=== PATIENT | male | born 1960 | race Caucasian/White ===

== ENCOUNTER 2017-06-15 21:05 | Emergency (ER) | payer MEDICAID ==
[~2017-06-15] VITALS: Ht 182.9 cm; Wt 114.6 kg
[~2017-06-15 21:05] MED LIST: AMLO10TA PO; ASPI-611 PO; ATOR10TA PO; CARV3.122 PO; CYCL-1 PO; FAMO20TA20; FLO0.4C PO; FURO40TA4 PO; GABA-532 PO; HYDR2TAB28 PO; IPRA4AER IH; LACT10SO PO; LISI-642 PO; METO-292 PO; OMEP20CA10 PO; OXYC-150 PO; POTA20TA19 PO; VARE1TAB22 PO
[2017-06-15] MEDS ORDERED: ibuprofen tablet 400 MG TABLET PO ONE (23:20)
[2017-06-15] MEDS ORDERED: HYDROcodone/acetaminophen 10/325mg tab PO ONE (23:20)
[2017-06-15] MEDS ORDERED: HYDR-565 PO (23:40)
[2017-06-15 23:46] VITALS: BP 135/85
== END 2017-06-15 23:48 | disposition home or self-care (01) ==
LOC: ER 21:05
DX: S40.021A Contusion of right upper arm, initial encounter (principal); R20.0 Anesthesia of skin; I25.10 Atherosclerotic heart disease of native coronary artery without angina pectoris; I10 Essential (primary) hypertension; J44.9 Chronic obstructive pulmonary disease, unspecified; E11.9 Type 2 diabetes mellitus without complications; F17.200 Nicotine dependence, unspecified, uncomplicated; Z98.890 Other specified postprocedural states; Z79.899 Other long term (current) drug therapy; Z79.82 Long term (current) use of aspirin; Z88.5 Allergy status to narcotic agent; Z88.1 Allergy status to other antibiotic agents; W01.0XXA Fall on same level from slipping, tripping and stumbling without subsequent striking against object, initial encounter; Y93.89 Activity, other specified; Y92.89 Other specified places as the place of occurrence of the external cause; Y99.9 Unspecified external cause status
CPT/HCPCS: 29105; 73080; 99284

== ENCOUNTER 2017-06-17 06:40 | Emergency (ER) | payer MEDICAID ==
[~2017-06-17] VITALS: Ht 182.9 cm; Wt 113.0 kg
[~2017-06-17 06:40] MED LIST changes: +HYDR-565 PO
[2017-06-17] MEDS ORDERED: HYDR-565 PO (07:17)
[2017-06-17 08:16] VITALS: BP 150/79
== END 2017-06-17 08:17 | disposition home or self-care (01) ==
LOC: ER 06:40
DX: M79.601 Pain in right arm (principal); I25.10 Atherosclerotic heart disease of native coronary artery without angina pectoris; I10 Essential (primary) hypertension; J44.9 Chronic obstructive pulmonary disease, unspecified; E11.9 Type 2 diabetes mellitus without complications; Z98.890 Other specified postprocedural states; Z88.5 Allergy status to narcotic agent; Z88.1 Allergy status to other antibiotic agents; Z79.82 Long term (current) use of aspirin; Z79.899 Other long term (current) drug therapy; W01.198D Fall on same level from slipping, tripping and stumbling with subsequent striking against other object, subsequent encounter
CPT/HCPCS: 99283

== ENCOUNTER 2017-06-21 02:42 | Emergency (ER) | payer MEDICAID ==
[~2017-06-21] VITALS: Ht 182.9 cm; Wt 115.1 kg
[2017-06-21 03:42] LABS: BASOPHILS % (AUTO) 0.5 % (0-1); EOSINOPHILS # (AUTO) 0.2 X10'3 (0-0.9); EOSINOPHILS % (AUTO) 3.2 % (0-6); HEMATOCRIT 36.1 % (42.0-52.0); HEMOGLOBIN 12.2 g/dl (14.0-17.9); LYMPHOCYTES # (AUTO) 1.5 X10'3 (1.1-4.8); LYMPHOCYTES % (AUTO) 25.6 % (21-51); MEAN CORPUSCULAR HGB CONC 33.9 % (33.0-36.5); MEAN CORPUSCULAR VOLUME 85.7 FL (78-98); MEAN PLATELET VOLUME 7.9 FL (7.4-10.4); MONOCYTES # (AUTO) 0.4 X10'3 (0-0.9); MONOCYTES % (AUTO) 7.4 % (2-12); NEUTROPHILS # (AUTO) 3.6 X10'3 (1.8-7.7); NEUTROPHILS % (AUTO) 63.3 % (42-75); PLATELET COUNT 243 X10'3 (140-440); RED BLOOD COUNT 4.21 X10'6 (4.70-6.10); RED CELL DISTRIBUTION WIDTH 13.9 % (11.5-14.5); WHITE BLOOD COUNT 5.8 X10'3 (4.5-11.0)
[2017-06-21 04:11] LABS: ALANINE AMINOTRANSFERASE 60 U/L (12-78); ALBUMIN 3.3 G/DL (3.4-5.0); ALBUMIN/GLOBULIN RATIO 0.9 (1.1-1.5); ALKALINE PHOSPHATASE 89 IU/L (46-116); ANION GAP 11 (8-16); ASPARTATE AMINO TRANSFERASE 46 U/L (10-37); BILIRUBIN,TOTAL 0.5 MG/DL (0.1-1.0); BLOOD UREA NITROGEN 11 MG/DL (7-18); BUN/CREATININE RATIO 13.4 (5.4-32.0); CHLORIDE 107 MMOL/L (99-107); CREATININE 0.82 MG/DL (0.60-1.10); GLUCOSE 121 MG/DL (70-104); MAGNESIUM 1.8 MG/DL (1.5-2.4); POTASSIUM 3.8 MMOL/L (3.5-5.1); SODIUM 144 MMOL/L (135-145); TOTAL CARBON DIOXIDE 25.7 MMOL/L (24-32); eGFR > 90 ML/MIN
[2017-06-21 04:15] LABS: PARTIAL THROMBOPLASTIN TIME 24 SECONDS (22-32); PROTHROMBIN TIME 9.9 SECONDS (9.0-12.0)
[2017-06-21] MEDS ORDERED: normal saline 1000ML IV soln IVB ONE (04:30)
[2017-06-21] MEDS ORDERED: acetylcysteine 200 MG/ml 4ml vial PO ONE (04:30)
[2017-06-21] MEDS ORDERED: iohexol 350MG/ML 100ml bottle IV ONE (04:34)
[2017-06-21] MEDS ORDERED: acetylcysteine 200 MG/ml 4ml vial ONE (05:33)
[2017-06-21] MEDS: MESSAGE TO NURSING PO NR ×2 (06:52→08:33)
[2017-06-21] MEDS ORDERED: morphine 4 MG/ML inj SYRINge IV ONE ×2 (08:10→08:55)
[2017-06-21 08:34] VITALS: BP 156/108
== END 2017-06-21 08:20 | disposition home or self-care (01) ==
LOC: ER 02:43
DX: M79.601 Pain in right arm (principal); I25.10 Atherosclerotic heart disease of native coronary artery without angina pectoris; I10 Essential (primary) hypertension; J44.9 Chronic obstructive pulmonary disease, unspecified; E11.9 Type 2 diabetes mellitus without complications; Z88.1 Allergy status to other antibiotic agents; Z88.2 Allergy status to sulfonamides; Z88.8 Allergy status to other drugs, medicaments and biological substances; Z79.82 Long term (current) use of aspirin
CPT/HCPCS: 36415; 73080; 73206; 80053; 83735; 85025; 85610; 85730; 93971; 96361; 96374; 96376; 99285; A4565; A6449; J2270; J7030; Q9967

== ENCOUNTER 2019-02-08 02:17 | Emergency (ER) | payer MEDICAID ==
[~2019-02-08] VITALS: Ht 182.9 cm; Wt 125.0 kg
[~2019-02-08 02:17] MED LIST changes: -HYDR-565 PO; -OMEP20CA10 PO; +OMEP20CA11 PO
--- NOTE | 2019-02-08 02:36 | NUR ---
XRAY AT BEDSIDE
[2019-02-08] MEDS ORDERED: HYDROcodone/acetaminophen 5mg/325mg tablet PO ONE (02:45)
[2019-02-08] MEDS ORDERED: ondansetron 4mg rapidly disintigrating tab PO ONE (02:45)
[2019-02-08] MEDS ORDERED: HYDR-3965 PO (02:58)
[2019-02-08 03:14] VITALS: BP 149/88
== END 2019-02-08 03:17 | disposition home or self-care (01) ==
LOC: ER 02:18
DX: M79.671 Pain in right foot (principal); I25.10 Atherosclerotic heart disease of native coronary artery without angina pectoris; I10 Essential (primary) hypertension; J44.9 Chronic obstructive pulmonary disease, unspecified; E11.9 Type 2 diabetes mellitus without complications; Z98.890 Other specified postprocedural states; Z88.8 Allergy status to other drugs, medicaments and biological substances; Z88.2 Allergy status to sulfonamides; Z79.82 Long term (current) use of aspirin; Z79.899 Other long term (current) drug therapy; W22.8XXA Striking against or struck by other objects, initial encounter; Y93.89 Activity, other specified; Y92.89 Other specified places as the place of occurrence of the external cause; Y99.8 Other external cause status
CPT/HCPCS: 73630; 99283

== ENCOUNTER 2020-01-25 16:05 | Emergency (ER) | payer MEDICAID ==
[~2020-01-25] VITALS: Ht 185.4 cm; Wt 127.3 kg
[~2020-01-25 16:05] MED LIST changes: +FAMO-49; -FAMO20TA20; -OMEP20CA11 PO; +OMEP20CA15 PO
[2020-01-25] MEDS ORDERED: dexamethasone sod phosphate 10mg/ml inj IV STA (17:11)
[2020-01-25] MEDS ORDERED: tranexamic acid 1gm/0.7% sal. 100 ML IV ONE (17:15)
[2020-01-25] MEDS ORDERED: normal saline 1000ML IV soln IVB ONE (17:15)
[2020-01-25] MEDS ORDERED: famotidine 10mg/ml inj IV ONE (17:15)
[2020-01-25] MEDS ORDERED: famotidine 10mg/ml inj IV SCH (17:15)
[2020-01-25] MEDS ORDERED: diphenhydrAMINE 50 mg/ml inj IV ONE (17:15)
[2020-01-25 17:48] LABS: BASOPHILS % (AUTO) 0.3 % (0-1); EOSINOPHILS # (AUTO) 0.2 X10'3 (0-0.9); EOSINOPHILS % (AUTO) 1.4 % (0-6); HEMATOCRIT 37.2 % (42.0-52.0); HEMOGLOBIN 12.5 g/dl (14.0-17.9); LYMPHOCYTES % (AUTO) 8.4 % (21-51); MEAN CORPUSCULAR HEMOGLOBIN 29.7 PG (27.0-31.0); MEAN CORPUSCULAR HGB CONC 33.7 g/dL (33.0-36.5); MEAN CORPUSCULAR VOLUME 88.1 FL (78-98); MEAN PLATELET VOLUME 8.1 FL (7.4-10.4); MONOCYTES # (AUTO) 1.2 X10'3 (0-0.9); MONOCYTES % (AUTO) 9.6 % (2-12); NEUTROPHILS # (AUTO) 9.6 X10'3 (1.8-7.7); NEUTROPHILS % (AUTO) 80.3 % (42-75); PLATELET COUNT 225 X10'3 (140-440); RED BLOOD COUNT 4.22 X10'6 (4.70-6.10); RED CELL DISTRIBUTION WIDTH 14.4 % (11.5-14.5)
[2020-01-25 18:00] LABS: ALANINE AMINOTRANSFERASE 43 U/L (12-78); ALBUMIN 3.4 G/DL (3.4-5.0); ALBUMIN/GLOBULIN RATIO 0.8 (1.1-1.5); ALKALINE PHOSPHATASE 109 IU/L (46-116); ANION GAP 7 (8-16); ASPARTATE AMINO TRANSFERASE 21 U/L (10-37); BILIRUBIN,TOTAL 1.3 MG/DL (0.1-1.0); BLOOD UREA NITROGEN 10 MG/DL (7-18); BUN/CREATININE RATIO 9.3 (5.4-32.0); CALCIUM 9.1 MG/DL (8.5-10.1); CHLORIDE 97 MMOL/L (99-107); CREATININE 1.08 MG/DL (0.60-1.10); GLUCOSE 239 MG/DL (70-104); POTASSIUM 3.3 MMOL/L (3.5-5.1); SODIUM 135 MMOL/L (135-145); TOTAL CARBON DIOXIDE 30.7 MMOL/L (24-32); TOTAL PROTEIN 7.9 G/DL (6.4-8.2); eGFR 70 ML/MIN
--- NOTE | 2020-01-25 18:31 | NUR ---
Pt states it is easier to swallow now.
[2020-01-25] MEDS ORDERED: albuterol 2.5 MG/3 ML nebule NEB ONE (18:35)
--- NOTE | 2020-01-25 18:55 | NUR ---
RT at bedside for SVN tx.
[2020-01-25] MEDS ORDERED: iohexol 300mg/ml 100ml inj. ONE (19:18)
[2020-01-25] MEDS ORDERED: clindamycin phosphate inj 600 MG in normal saline 50ml IV soln 50 ML IV ONE (19:35)
[2020-01-25] MEDS ORDERED: clindamycin 600mg/D5W 50ml 50 ML IV ONE (19:37)
--- NOTE | 2020-01-25 20:33 | NUR ---
Pt has CHF, takes Lasix at home, has bilateral lower extremity edema.
[2020-01-25] MEDS ORDERED: PENI500T2 PO (20:43)
[2020-01-25 20:44] LABS: TROPONIN I < 0.04 NG/ML (0.0-0.05)
[2020-01-25] MEDS ORDERED: PRED20TA PO (20:47)
[2020-01-25 20:58] VITALS: BP 126/77
== END 2020-01-25 20:58 | disposition home or self-care (01) ==
LOC: ER 16:05 → UNDOADMIN 19:31 → ED HOLD 19:31 → UNDODISIN 20:58 → ER 20:58
DX: J02.0 Streptococcal pharyngitis (principal); I25.10 Atherosclerotic heart disease of native coronary artery without angina pectoris; I10 Essential (primary) hypertension; J44.9 Chronic obstructive pulmonary disease, unspecified; E11.9 Type 2 diabetes mellitus without complications; Z98.890 Other specified postprocedural states; Z88.5 Allergy status to narcotic agent; Z88.2 Allergy status to sulfonamides; Z88.1 Allergy status to other antibiotic agents; Z88.8 Allergy status to other drugs, medicaments and biological substances; Z79.82 Long term (current) use of aspirin; Z79.899 Other long term (current) drug therapy
CPT/HCPCS: 36415; 70491; 80053; 84484; 85025; 87880; 94640; 96365; 96367; 96375; 99285; J1100; J1200; J3490; J7030; Q9967; 94760; G0378

== ENCOUNTER 2021-08-01 21:29 | Inpatient (IN) | payer MEDICAID ==
[~2021-08-01] VITALS: Ht 185.4 cm; Wt 120.0 kg
[~2021-08-01 21:29] MED LIST changes: -LACT10SO PO; +LACT10SO3 PO; +POTA-207 PO; -POTA20TA19 PO
[2021-08-01 21:58] LABS: CLARITY,URINE CLEAR (Clear); COLOR,URINE YELLOW (Yellow); GLUCOSE, URINE 250 mg/dl (Neg); KETONES,URINE NEGATIVE (Neg); LEUKOCYTE ESTERASE ,URINE NEGATIVE (Neg); NITRITES, URINE NEGATIVE (Neg); OCCULT BLOOD,URINE NEGATIVE (Neg); PROTEIN,URINE TRACE mg/dl (Neg); UROBILINOGEN,URINE 0.2 E.U/dL (0.2-1.0)
[2021-08-01 22:13] LABS: UA COLLECTION TYPE CLN CATCH MIDSTREAM
[2021-08-01 22:14] LABS: BASOPHILS % (AUTO) 0.6 % (0-1); EOSINOPHILS # (AUTO) 0.2 X10'3 (0-0.9); EOSINOPHILS % (AUTO) 3.6 % (0-6); HEMATOCRIT 39.5 % (42.0-52.0); HEMOGLOBIN 13.5 g/dl (14.0-17.9); LYMPHOCYTES # (AUTO) 1.5 X10'3 (1.1-4.8); LYMPHOCYTES % (AUTO) 21.9 % (21-51); MEAN CORPUSCULAR HEMOGLOBIN 30.3 PG (27.0-31.0); MEAN CORPUSCULAR HGB CONC 34.1 g/dL (33.0-36.5); MEAN CORPUSCULAR VOLUME 88.7 FL (78-98); MEAN PLATELET VOLUME 7.2 FL (7.4-10.4); MONOCYTES # (AUTO) 0.6 X10'3 (0-0.9); MONOCYTES % (AUTO) 8.5 % (2-12); NEUTROPHILS # (AUTO) 4.5 X10'3 (1.8-7.7); NEUTROPHILS % (AUTO) 65.4 % (42-75); PLATELET COUNT 230 X10'3 (140-440); RED BLOOD COUNT 4.45 X10'6 (4.70-6.10); RED CELL DISTRIBUTION WIDTH 14.6 % (11.5-14.5); WHITE BLOOD COUNT 6.9 X10'3 (4.5-11.0)
[2021-08-01 22:17] LABS: BACTERIA,URINE FEW /HPF (Neg); MUCUS STRANDS NONE SEEN /LPF (Neg); RBC,URINE 0-2 /HPF (0-2); SQUAMOUS EPITHELIAL CELL,UR FEW /LPF (FEW); WBC,URINE 0-4 /HPF (0-4)
[2021-08-01 22:25] LABS: ALANINE AMINOTRANSFERASE 30 U/L (12-78); ALBUMIN 3.8 G/DL (3.4-5.0); ALBUMIN/GLOBULIN RATIO 0.8 (1.1-1.5); ALKALINE PHOSPHATASE 68 IU/L (46-116); ANION GAP 9 (8-16); ASPARTATE AMINO TRANSFERASE 17 U/L (10-37); BILIRUBIN,TOTAL 0.4 MG/DL (0.1-1.0); BLOOD UREA NITROGEN 19 MG/DL (7-18); BUN/CREATININE RATIO 17.6 (5.4-32.0); CALCIUM 8.4 MG/DL (8.5-10.1); CHLORIDE 102 MMOL/L (99-107); CREATININE 1.08 MG/DL (0.60-1.10); GLUCOSE 144 MG/DL (70-104); POTASSIUM 3.9 MMOL/L (3.5-5.1); SODIUM 139 MMOL/L (135-145); TOTAL CARBON DIOXIDE 28.4 MMOL/L (24-32); TOTAL PROTEIN 8.4 G/DL (6.4-8.2); eGFR 70 ML/MIN
[2021-08-01] MEDS ORDERED: aspirin 325mg tablet PO ONE (23:40)
--- NOTE | 2021-08-02 02:05 | NUR ---
Interrogated patient's pacemaker. Per pacemaker territory representative, patient has had one defibrillation episode at the end of April 2021. Dr. Del Rio notified.
--- NOTE | 2021-08-02 02:53 | NUR ---
Pt reported left sided weakness to MD. MD ordered head CT. Pt is in CT now. RN noticed pt seemed a little bit more groggy and confused when he was woken up to go to CT. of pt says that this is normal for him when awakening.
[2021-08-02] MEDS ORDERED: iohexol 350MG/ML 100ml bottle IV ONE (03:14)
[2021-08-02 03:49] LABS: APTT 25 SECONDS (22-32)
[2021-08-02] MEDS ORDERED: magnesium 2GM in 50ml NS 50 ML IV PRN (05:00)
[2021-08-02] MEDS ORDERED: magnesium hydroxide 30ml (MOM) UD suspension PO PRN (05:00)
[2021-08-02] MEDS ORDERED: ondansetron/PF 4mg/2ml inj IV PRN (05:00)
[2021-08-02] MEDS ORDERED: potassium CL 10mEq/100ml bag 100 ML IV PRN (05:00)
[2021-08-02] MEDS ORDERED: mag hydrox/Alum hydrox/simeth 30ml oral suspension PO PRN (05:00)
[2021-08-02] MEDS ORDERED: acetaminophen 325mg tablet PO PRN (05:00)
[2021-08-02] MEDS ORDERED: magnesium 4gm in 100ml NS 100 ML IV PRN (05:00)
[2021-08-02] MEDS ORDERED: magnesium Cl slow-release 64mg tablet PO PRN (05:00)
[2021-08-02] MEDS ORDERED: PERFLUTREN PROTEIN-A MICROSPHR (Optison) 0.22 MG/ML 3ML VIAL IV PRN (05:00)
[2021-08-02] MEDS ORDERED: potassium Cl 20 mEq SR tablet PO PRN ×2 (05:00)
[2021-08-02 06:18] LABS: HEMOGLOBIN A1C 10.4 % (4.5-6.2)
--- NOTE | 2021-08-02 06:24 | NUR ---
report received by nevaeh
[2021-08-02] MEDS ORDERED: docusate sod 100mg capsule PO SCH (08:00)
[2021-08-02] MEDS ORDERED: K and/or MAG REPLACEMENT MC SCH (08:00)
[2021-08-02] MEDS ORDERED: aspirin 325mg tablet, delayed-release (Ecotrin) PO SCH (08:00)
--- NOTE | 2021-08-02 08:21 | NUR ---
telephone report to Jackie Potter.
--- NOTE | 2021-08-02 08:42 | NUR ---
pt refusing hospital gown. meal tray requested to 4019G.
[2021-08-02 09:15] LABS: MAGNESIUM 2.2 MG/DL (1.5-2.4); POTASSIUM 3.9 MMOL/L (3.5-5.1)
--- NOTE | 2021-08-02 09:30 | NUR ---
RECEIVED REPORT, PT ARRIVED TO FLOOR, ASSUMED CARE. REPORTS PAIN AND REQUESTING PAIN MEDICINE. NO PAIN MEDS ORDERED AT THIS TIME. RECEIVED IN REPORT ED NURSE PAGED DR PADILLA REQUESTING MEDS, WITH NO RESPONSE, I WILL PAGE AGAIN. OTHERWISE VS WDL, A&O X4
--- NOTE | 2021-08-02 09:40 | NUR ---
PAGER ID: [phone] MESSAGE: Re Yeyo Boss Rm [id number]. Can you please call re pain meds and insulin order needs Thank You, Tariq CARDOSO
[2021-08-02 10:00] VITALS: BP 120/79
[2021-08-02] MEDS ORDERED: ALBU8.5H17 IH (10:25)
[2021-08-02] MEDS ORDERED: NICO-687 TOP (10:25)
[2021-08-02] MEDS ORDERED: INSU300I SQ (10:25)
[2021-08-02] MEDS ORDERED: CLOT30CR24 TOP (10:25)
[2021-08-02] MEDS ORDERED: INSU100V43 SQ (10:25)
[2021-08-02] MEDS ORDERED: BECL10.6 (10:25)
[2021-08-02] MEDS ORDERED: POTA10CA44 PO (10:25)
[2021-08-02] MEDS ORDERED: FURO80TA3 PO (10:25)
[2021-08-02] MEDS ORDERED: AMIO200T61 PO (10:25)
[2021-08-02] MEDS ORDERED: CARV6.253 PO (10:25)
[2021-08-02] MEDS ORDERED: GABA300C PO (10:25)
[2021-08-02] MEDS ORDERED: DIGO250T PO (10:25)
[2021-08-02] MEDS ORDERED: APIX5TAB3 PO (10:25)
--- NOTE | 2021-08-02 10:52 | NUR ---
AGER ID: [phone] MESSAGE: RE Myrna GEORGE PLEASE CALL RE PAIN MEDS, CONCERNS OF CVA PER PT THANK YOU, RAYO CARDOSO
--- NOTE | 2021-08-02 11:22 | NUR ---
promotional table spacer PAGER ID: [phone] MESSAGE: FANNY SANTOS RM [id number] URGENT, PLEASE CALL RE PAIN MEDICINE, CONCERNS OF CVA PER PT THANK YOU, RAYO CARDOSO
--- NOTE | 2021-08-02 11:30 | NUR ---
CARD CLEANER MISLABELLED DR ON ASSIGNMENT BOARD. I WAS PAGING DR PADILLA, WHEN RODRIGO IS THE ASSIGNED MD. PAGED RODRIGO FOR PATIENT NEEDS
[2021-08-02] MEDS ORDERED: ALBUTEROL INHALER 1 PUFF/90 MCG INHALER IH PRN (12:00)
[2021-08-02] MEDS ORDERED: dextrose 50%-water 50ml dispensing syringe IV PRN ×2 (12:00)
[2021-08-02] MEDS ORDERED: DEXTROSE 15 GM of carb/4 tabs (each vial/BOTTLE has 4 tablets) PO PRN ×2 (12:00)
[2021-08-02] MEDS ORDERED: insulin Lispro (HumaLOG) vial - multi-dose SQ SCH (12:00)
[2021-08-02] MEDS ORDERED: MESSAGE TO PHARMACY PO ONE (12:00)
[2021-08-02] MEDS ORDERED: oxyCODONE/APAP 10/325mg tablet PO PRN (12:00)
[2021-08-02] MEDS ORDERED: glucagon, human recombinant 1mg kit SUBCUT PRN (12:00)
[2021-08-02 14:00] VITALS: BP 150/80
--- NOTE | 2021-08-02 14:00 | NUR ---
Noted pt with T2DM, current A1c 10.4% with BG 144 mg/dL on admit. Pt and SO seen at bedside for written and verbal DM education. SO reports patient's insulin rx was recently adjusted, pt takes long acting insulin BID with short acting insulin. Pt reports A1c was 14.7% at last check about two months ago. All of patient's and SO questions were answered at this time. RD contact information was provided and pt/SO encouraged to reach out if needed. Noted pt admit for CVA, s/p BSS with ST recs soft and bite sized food (SB6) with thin liquids. Pt endorses a good appetite and requests double protein with meals, d/w dietary. Additional food preferences were obtained and d/w dietary, see below. Pt denies food allergies. Will continue to follow. Recommendations: 1) Continue SB6 diet with thin liquids per ST recs; monitor BG levels and need to add CHO controlled restriction 2) [place] food preferences: yogurt WB, double meat BIDYOSSI, diet lemon [place] soda or diet dr delilah [place], milk TIDWM; no scrambled eggs (omelette and hard boiled eggs are okay),tomatoes, onions, fish (tuna is okay), or pancakes 3) Bowel care per rx 4) Weekly scaled weights Addendum: 08/02/21 at [address] Amended: Links added.
--- NOTE | 2021-08-02 15:40 | NUR ---
PAGER ID: [phone] MESSAGE: FANNY RENO [phone] IS LEAVING AMA
--- NOTE | 2021-08-02 15:53 | NUR ---
PATIENT LEFT AMA, RISKS EXPLAINED TO PATIENT, DR WALLACE NOTIFIED
[2021-08-02] MEDS ORDERED: furosemide 40mg tablet PO SCH (20:00)
[2021-08-02] MEDS ORDERED: budesonide 0.5mg/2ml UD nebule IH SCH (20:00)
[2021-08-02] MEDS ORDERED: amiodarone 200mg tablet PO SCH (20:00)
[2021-08-02] MEDS ORDERED: apixaban 5mg tablet PO SCH (20:00)
[2021-08-02] MEDS ORDERED: carvedilol 6.25mg tablet PO SCH (20:00)
[2021-08-02] MEDS ORDERED: insulin glargine (Lantus) pen - multi-dose SQ SCH (21:00)
[2021-08-03] MEDS ORDERED: digoxin 250mcg (0.25mg) tablet PO SCH (08:00)
[2021-08-03] MEDS ORDERED: tamsulosin 0.4mg capsule PO SCH (08:00)
== END 2021-08-02 15:50 | disposition left against medical advice (07) | DRG 45 ==
LOC: ER 21:30 → UNDOADMIN 08-02 05:01 → ED HOLD 08-02 05:01 → ORTHO 4S 08-02 08:45 → ED HOLD 08-02 08:45 → UNDODISIN 08-02 15:50
PROVIDERS: ADMIT Internal Medicine; ATTEND Internal Medicine
PROC: B3251ZZ Computerized Tomography (CT Scan) of Bilateral Common Carotid Arteries using Low Osmolar Contrast (ICD-10-PCS; principal; 2021-08-02)
PROC: B32G1ZZ Computerized Tomography (CT Scan) of Bilateral Vertebral Arteries using Low Osmolar Contrast (ICD-10-PCS; 2021-08-02)
PROC: B32R1ZZ Computerized Tomography (CT Scan) of Intracranial Arteries using Low Osmolar Contrast (ICD-10-PCS; 2021-08-02)
PROC: B3281ZZ Computerized Tomography (CT Scan) of Bilateral Internal Carotid Arteries using Low Osmolar Contrast (ICD-10-PCS; 2021-08-02)
DX: I63.549 Cerebral infarction due to unspecified occlusion or stenosis of unspecified cerebellar artery (principal); I42.8 Other cardiomyopathies; I50.9 Heart failure, unspecified; I11.0 Hypertensive heart disease with heart failure; E11.9 Type 2 diabetes mellitus without complications; N43.3 Hydrocele, unspecified; I25.10 Atherosclerotic heart disease of native coronary artery without angina pectoris; E78.00 Pure hypercholesterolemia, unspecified; J44.9 Chronic obstructive pulmonary disease, unspecified; G89.4 Chronic pain syndrome; Z53.29 Procedure and treatment not carried out because of patient's decision for other reasons; I25.2 Old myocardial infarction; Z95.810 Presence of automatic (implantable) cardiac defibrillator; Z88.8 Allergy status to other drugs, medicaments and biological substances; Z88.2 Allergy status to sulfonamides; Z79.899 Other long term (current) drug therapy; Z79.82 Long term (current) use of aspirin; Z79.01 Long term (current) use of anticoagulants
CPT/HCPCS: 36415; 70450; 70496; 70498; 71045; 76870; 80053; 81001; 82948; 83036; 83735; 83880; 84132; 84484; 85025; 85610; 85730; 92508; 92616; 93005; 93306; 93976; 97116; 97162; 97530; 99291; 99292; G0378; J1815; Q9967

== ENCOUNTER 2022-10-13 23:37 | Emergency (ER) | payer MEDICAID ==
[~2022-10-13] VITALS: Ht 182.9 cm; Wt 118.2 kg
[~2022-10-13 23:37] MED LIST changes: +ALBU8.5H17 IH; +AMI200T PO; -AMLO10TA PO; +APIX5TAB3 PO; -ASPI-611 PO; -ATOR10TA PO; +BECL10.6; -CARV3.122 PO; +CARV6.253 PO; +CLOT30CR24 TOP; -CYCL-1 PO; +DIGO250T PO; -FAMO-49; -FURO40TA4 PO; +FURO80TA3 PO; -GABA-532 PO; +GABA300C PO; -HYDR2TAB28 PO; +INSU100V43 SQ; +INSU300I SQ; -IPRA4AER IH; -LACT10SO3 PO; -LISI-642 PO; -METO-292 PO; +NICO-687 TOP; -OMEP20CA15 PO; -POTA-207 PO; +POTA10CA85 PO; -VARE1TAB22 PO
[2022-10-13 23:57] VITALS: BP 137/90
[2022-10-14 01:20] LABS: ALANINE AMINOTRANSFERASE 21 U/L (12-78); ALBUMIN 3.3 G/DL (3.4-5.0); ALBUMIN/GLOBULIN RATIO 0.8 (1.1-1.5); ALKALINE PHOSPHATASE 97 IU/L (46-116); ANION GAP 12 (8-16); ASPARTATE AMINO TRANSFERASE 12 U/L (10-37); BILIRUBIN,TOTAL 0.3 MG/DL (0.1-1.0); BLOOD UREA NITROGEN 12 MG/DL (7-18); BUN/CREATININE RATIO 13.2 (10.0-20.0); CHLORIDE 102 MMOL/L (99-107); CREATININE 0.91 MG/DL (0.60-1.10); GLUCOSE 225 MG/DL (70-104); POTASSIUM 3.8 MMOL/L (3.5-5.1); SODIUM 139 MMOL/L (135-145); TOTAL CARBON DIOXIDE 24.6 MMOL/L (24-32); TOTAL PROTEIN 7.2 G/DL (6.4-8.2); eGFR 84 ML/MIN
[2022-10-14 01:23] LABS: CLARITY,URINE CLEAR (Clear); COLOR,URINE STRAW (Yellow); GLUCOSE, URINE 250 mg/dl (Neg); KETONES,URINE NEGATIVE (Neg); LEUKOCYTE ESTERASE ,URINE NEGATIVE (Neg); NITRITES, URINE NEGATIVE (Neg); OCCULT BLOOD,URINE NEGATIVE (Neg); PROTEIN,URINE NEGATIVE (Neg); UA COLLECTION TYPE CLN CATCH MIDSTREAM; UROBILINOGEN,URINE 0.2 E.U/dL (0.2-1.0)
[2022-10-14 01:26] LABS: BASOPHILS # (AUTO) 0.1 X10'3 (0-0.2); BASOPHILS % (AUTO) 0.6 % (0-1); EOSINOPHILS # (AUTO) 0.2 X10'3 (0-0.9); EOSINOPHILS % (AUTO) 1.9 % (0-6); HEMATOCRIT 43.4 % (42.0-52.0); HEMOGLOBIN 14.5 g/dl (14.0-17.9); LYMPHOCYTES # (AUTO) 1.7 X10'3 (1.1-4.8); LYMPHOCYTES % (AUTO) 20.2 % (21-51); MEAN CORPUSCULAR HEMOGLOBIN 29.1 PG (27.0-31.0); MEAN CORPUSCULAR HGB CONC 33.3 g/dL (33.0-36.5); MEAN CORPUSCULAR VOLUME 87.4 FL (78-98); MEAN PLATELET VOLUME 8.6 FL (7.4-10.4); MONOCYTES # (AUTO) 0.5 X10'3 (0-0.9); MONOCYTES % (AUTO) 6.2 % (2-12); NEUTROPHILS # (AUTO) 5.8 X10'3 (1.8-7.7); NEUTROPHILS % (AUTO) 71.1 % (42-75); PLATELET COUNT 271 X10'3 (140-440); RED BLOOD COUNT 4.97 X10'6 (4.70-6.10); RED CELL DISTRIBUTION WIDTH 14.2 % (11.5-14.5); WHITE BLOOD COUNT 8.2 X10'3 (4.5-11.0)
[2022-10-14] MEDS ORDERED: DOXY-1 PO (03:25)
[2022-10-14] MEDS ORDERED: CEPH-585 PO (03:25)
== END 2022-10-14 03:48 | disposition home or self-care (01) ==
LOC: ER 23:38
DX: N49.2 Inflammatory disorders of scrotum (principal); N43.3 Hydrocele, unspecified
CPT/HCPCS: 36415; 76870; 80053; 81003; 83605; 83880; 85025; 86592; 87040; 87077; 87186; 93976; 99284